=== PATIENT | female | born 2000 | race Two or more races ===

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

== ENCOUNTER 2019-06-02 20:14 | Emergency (ER) | payer OTHER ==
[~2019-06-02] VITALS: Ht 167.6 cm; Wt 71.3 kg
[2019-06-02 20:15] VITALS: BP 131/76
[2019-06-02] MEDS ORDERED: [UNRECOGNIZED DRUG - OTHER] (20:23)
[2019-06-02] MEDS ORDERED: ADDE30CA3 PO (20:23)
[2019-06-02] MEDS ORDERED: FLON1SPR NARES (21:15)
== END 2019-06-02 21:33 | disposition home or self-care (01) ==
LOC: M ED 20:14
DX: H65.01 Acute serous otitis media, right ear (principal); R09.82 Postnasal drip; Z20.89 Contact with and (suspected) exposure to other communicable diseases; G43.909 Migraine, unspecified, not intractable, without status migrainosus

== ENCOUNTER 2019-07-30 13:50 | Emergency (ER) | payer OTHER ==
[~2019-07-30] VITALS: Ht 170.2 cm; Wt 76.6 kg
[~2019-07-30 13:50] MED LIST: ADDE30CA3 PO; FLON1SPR NARES; [UNRECOGNIZED DRUG - OTHER]
[2019-07-30] MEDS ORDERED: ZOMI2.5T4 PO (13:57)
[2019-07-30] MEDS ORDERED: diphenhydrAMINE 50MG/ML VIAL (J1200) IV ONE (15:30)
[2019-07-30] MEDS ORDERED: METOCLOPRAMIDE INJ 10MG/2ML VIAL (J2765 PER 1) IV ONE (15:30)
[2019-07-30] MEDS ORDERED: NS 1,000 ML IV ONE (15:30)
[2019-07-30] MEDS ORDERED: ACETAMINOPHEN 500 MG TAB PO ONE (15:30)
[2019-07-30 15:42] LABS: APPEARANCE, URINE CLEAR (CLEAR); BACTERIA, URINE AUTO NEGATIVE (NEGATIVE); BASO # 0.1 10^3/uL (0.0-0.2); BASO % 0.7 % (0.0-1.0); BILIRUBIN, URINE AUTO NEGATIVE (NEGATIVE); BLOOD, URINE BLOOD 1+ (NEGATIVE); COLOR, URINE YELLOW (YELLOW); EOS # 0.3 10^3/uL (0.0-0.5); EOS % 4.1 % (0.0-3.0); GLUCOSE, URINE (UA) AUTO NEGATIVE (NEGATIVE); HEMATOCRIT 38.1 % (36.0-47.0); HEMOGLOBIN 13.1 g/dl (12.0-15.5); KETONE, URINE AUTO NEGATIVE (NEGATIVE); LEUKOCYTE ESTERASE, URINE AUTO NEGATIVE (NEGATIVE); LYMPH # 2.5 10^3/uL (1.5-5.0); MEAN CORPUSCULAR HEMOGLOBIN 29.1 pg (27.0-33.0); MEAN CORPUSCULAR HGB CONC 34.4 g/dl (32.0-36.5); MEAN CORPUSCULAR VOLUME 84.7 fl (80.0-96.0); MONO # 0.6 10^3/uL (0.0-0.8); MONO % 8.7 % (0.0-5.0); NEUTROPHILS # 3.5 10^3/uL (1.5-8.5); NEUTROPHILS % 50.2 % (36.0-66.0); NITRITE, URINE AUTO NEGATIVE (NEGATIVE); PLATELET COUNT, AUTOMATED 227 10^3/uL (150-450); PROTEIN, URINE AUTO NEGATIVE (NEGATIVE); RBC, URINE AUTO 0 /HPF (0-3); SPECIFIC GRAVITY URINE AUTO 1.016 (1.002-1.035); SQUAMOUS EPITHELIAL CELL UR AU 1 /HPF (0-6); WBC, URINE AUTO 1 /HPF (0-3); WHITE BLOOD COUNT 6.9 10^3/uL (4.0-10.0)
[2019-07-30 16:14] LABS: HCG, SERUM QUALITATIVE NEGATIVE (NEGATIVE)
[2019-07-30 16:16] LABS: BLOOD UREA NITROGEN 16 MG/DL (7-18); CALCIUM LEVEL 8.3 MG/DL (8.5-10.1); CARBON DIOXIDE LEVEL 29 MEQ/L (21-32); CHLORIDE LEVEL 105 MEQ/L (98-107); CK-MB VALUE MASS < 1.0 NG/ML (<3.6); CPK CREATINE PHOSPHOKINASE 82 U/L (26-192); CREATININE FOR GFR 1.01 MG/DL (0.55-1.30); FREE T4 1.26 NG/DL (0.78-1.33); GLUCOSE, FASTING 57 MG/DL (70-100); MB/CK RELATIVE INDEX 1.22 (< OR =4); SODIUM LEVEL 139 MEQ/L (136-145); TROPONIN I < 0.02 NG/ML (< 0.10)
[2019-07-30 17:27] VITALS: BP 124/77
--- NOTE | 2019-07-30 22:21 | ECGEPIP ---
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
== END 2019-07-30 17:40 | disposition home or self-care (01) ==
LOC: M ED 13:50
DX: R51 Headache (principal); I49.9 Cardiac arrhythmia, unspecified; I45.10 Unspecified right bundle-branch block; J34.89 Other specified disorders of nose and nasal sinuses; F90.9 Attention-deficit hyperactivity disorder, unspecified type; G43.909 Migraine, unspecified, not intractable, without status migrainosus; Z79.899 Other long term (current) drug therapy
CPT/HCPCS: 80048; 81001; 82550; 82553; 84439; 84443; 84484; 84703; 85025; 93005; 96361; 96374; 96375; 99284; J1200; J2765

== ENCOUNTER 2019-08-16 19:53 | Emergency (ER) | payer OTHER ==
[~2019-08-16 19:53] MED LIST changes: +ZOMI2.5T4 PO
[2019-08-16] MEDS ORDERED: GI COCKTAIL 50ML BTL(HYOSCYAMINE/MAALOX/LIDOCAINE VISCOUS)(1:3:1) PO ONE (21:00)
[2019-08-16] MEDS ORDERED: ONDANSETRON 4 MG ORAL DISINTEGRATING TAB PO ONE (21:00)
[2019-08-16] MEDS ORDERED: DICYCLOMINE 10 MG CAP PO ONE (21:00)
[2019-08-16 21:04] LABS: BASO % 0.5 % (0.0-1.0); EOS # 0.2 10^3/uL (0.0-0.5); EOS % 2.6 % (0.0-3.0); HEMATOCRIT 38.8 % (36.0-47.0); HEMOGLOBIN 13.4 g/dl (12.0-15.5); LYMPH # 3.3 10^3/uL (1.5-5.0); LYMPH % 39.3 % (24.0-44.0); MEAN CORPUSCULAR HEMOGLOBIN 28.8 pg (27.0-33.0); MEAN CORPUSCULAR HGB CONC 34.5 g/dl (32.0-36.5); MEAN CORPUSCULAR VOLUME 83.3 fl (80.0-96.0); MONO # 0.7 10^3/uL (0.0-0.8); MONO % 8.6 % (0.0-5.0); NEUTROPHILS # 4.1 10^3/uL (1.5-8.5); NEUTROPHILS % 48.8 % (36.0-66.0); PLATELET COUNT, AUTOMATED 198 10^3/uL (150-450); RED BLOOD COUNT 4.66 10^6/uL (4.00-5.40); WHITE BLOOD COUNT 8.4 10^3/uL (4.0-10.0)
[2019-08-16 22:05] LABS: ALBUMIN 3.9 GM/DL (3.2-5.2); BILIRUBIN,DIRECT 0.1 MG/DL (0.0-0.2); BILIRUBIN,TOTAL 0.3 MG/DL (0.2-1.0); TOTAL PROTEIN 7.2 GM/DL (6.4-8.2)
[2019-08-16] MEDS ORDERED: CARA1TAB6 PO (22:15)
[2019-08-16] MEDS ORDERED: OMEP-218 PO (22:15)
[2019-08-16 22:25] VITALS: BP 131/69
== END 2019-08-16 22:26 | disposition home or self-care (01) ==
LOC: M ED 19:53
DX: K29.70 Gastritis, unspecified, without bleeding (principal); K21.9 Gastro-esophageal reflux disease without esophagitis; Z79.899 Other long term (current) drug therapy
CPT/HCPCS: 80047; 80076; 81001; 83690; 85025; 99283; Q0162

== ENCOUNTER 2019-08-27 19:55 | Emergency (ER) | payer OTHER ==
[~2019-08-27] VITALS: Ht 167.6 cm; Wt 76.6 kg
[~2019-08-27 19:55] MED LIST changes: +CARA1TAB6 PO; +OMEP-218 PO
[2019-08-27 20:43] LABS: BASO % 0.4 % (0.0-1.0); EOS # 0.2 10^3/uL (0.0-0.5); EOS % 1.5 % (0.0-3.0); HEMATOCRIT 38.4 % (36.0-47.0); HEMOGLOBIN 13.2 g/dl (12.0-15.5); LYMPH % 29.2 % (24.0-44.0); MEAN CORPUSCULAR HEMOGLOBIN 28.6 pg (27.0-33.0); MEAN CORPUSCULAR HGB CONC 34.4 g/dl (32.0-36.5); MEAN CORPUSCULAR VOLUME 83.3 fl (80.0-96.0); MONO # 0.7 10^3/uL (0.0-0.8); MONO % 6.9 % (0.0-5.0); NEUTROPHILS # 6.3 10^3/uL (1.5-8.5); NEUTROPHILS % 61.7 % (36.0-66.0); PLATELET COUNT, AUTOMATED 221 10^3/uL (150-450); RED BLOOD COUNT 4.61 10^6/uL (4.00-5.40); WHITE BLOOD COUNT 10.2 10^3/uL (4.0-10.0)
[2019-08-27] MEDS ORDERED: ACETAMINOPHEN 325 MG TAB PO ONE (20:45)
[2019-08-27 21:27] VITALS: BP 118/74
== END 2019-08-27 21:28 | disposition home or self-care (01) ==
LOC: M ED 19:55
DX: O20.8 Other hemorrhage in early pregnancy (principal); Z32.01 Encounter for pregnancy test, result positive; Z87.59 Personal history of other complications of pregnancy, childbirth and the puerperium; Z91.018 Allergy to other foods

== ENCOUNTER 2020-06-26 13:26 | Emergency (ER) | payer OTHER ==
[~2020-06-26] VITALS: Ht 167.6 cm; Wt 83.5 kg
[~2020-06-26 13:26] MED LIST changes: +ACET-910 PO; +ADDE1TAB14 PO; +CYCL-707 PO; +EPIP0.3I2 IM; +GOOD200C PO; +IBUP-1022 PO; +IMIT4KIT SC; +ONDA4TAB6 PO; +TRAZ-252 PO; +ZONI100C17 PO; +adderal; +imitrex; +trazodone
[2020-06-26] MEDS ORDERED: PRE NATAL (14:28)
[2020-06-26 14:35] VITALS: BP 124/70
--- NOTE | 2020-06-26 15:08 | REP ---
INDICATION: > 20 wk abd pain eval cervical length and amniotic fluid. COMPARISON: None. TECHNIQUE: Real-time sonographic evaluation of gravid uterus performed. FINDINGS: There is a single living intrauterine gestation. measurements were not obtained. position is cephalic. Placenta is anterior and grade 0 with no previa or abruption. Cervix is closed and measures 3.8 cm in length. heart rate is 170 beats per minute. Amniotic fluid appears within normal limits. SIMONE 13.6 within normal limits. IMPRESSION: Living intrauterine gestation, cervix is closed 3.8 cm in length, heart rate 170 beats per minute. Amniotic fluid within normal limits. <Electronically signed by Du Phan > 06/26/20 [id number]
--- NOTE | 2020-06-26 15:44 | IPNPDOC ---
Text Note Date of Service The patient was seen on 06/26/20. NOTE 20 yo at 20+3 weeks gestation presented to the ER with complaint of intermittent vaginal pain, burning, and pressure with urination over the last 24-48 hours. She denies any vaginal bleeding or leakage of fluid or vaginal discharge. She denies any other symptoms. Denies recent intercourse. Chaperoned by RN Vitals - VSS, afebrile, normotensive, non tachycardic General - AAOX3, sitting up in bed, pleasant and conversant, NAD Abdomen - Gravid uterus, no fundal tenderness Pelvic - External genitalia with notable white, clumpy discharge on external labia. Swab obtained. No trauma or lesions on external genitalia. Extremities - No edema Microscopy - Yeast present UA - 2+ bacteria, too numerous to count WBCs, clean catch Suspect UTI along with yeast infection as cause of symptoms. Recommended aggressive hydration over the next few days. Will treat yeast with clotrimazole (called into [facility]) and urinary symptoms with pyridium as we await urine culture results. Will contact patient when results return. All patient questions answered. 30 minutes of patient care Morgan Damon, I+O Morgan BLACKMON, I+O Vital Signs Date Time Temp Pulse Resp B/P (MAP) Pulse Ox O2 Delivery O2 Flow Rate FiO2 06/26/20 14:35 99.0 124/70 (88) 97 Room Air 06/26/20 13:27 101 18 VICENTE MCKEON DO Jun 26, 2020 15:44
[2020-06-26 15:55] LABS: CHLAMYDIA DNA AMPLIFICATION NEGATIVE (NEGATIVE); GC DNA AMPLIFICATION NEGATIVE (NEGATIVE)
[2020-06-27] MEDS ORDERED: TERC0.4C2 (18:01)
[2020-06-27] MEDS ORDERED: PHEN-501 (18:01)
== END 2020-06-26 14:45 | disposition admitted as inpatient to this hospital (09) ==
LOC: M ED 13:26
DX: O99.891 Other specified diseases and conditions complicating pregnancy (principal); R10.9 Unspecified abdominal pain; R30.9 Painful micturition, unspecified; Z3A.20 20 weeks gestation of pregnancy; Z91.018 Allergy to other foods

== ENCOUNTER 2020-06-26 14:44 | Outpatient (CLI) | payer OTHER ==
[~2020-06-26] VITALS: Ht 167.6 cm; Wt 82.5 kg
[~2020-06-26 14:44] MED LIST changes: +PRE NATAL
[2020-06-26 14:52] VITALS: BP 132/85
[2020-06-26 15:38] VITALS: BP 117/62
[2020-06-27] MEDS ORDERED: PHEN-501 (18:01)
[2020-06-27] MEDS ORDERED: TERC0.4C2 (18:01)
== END 2020-06-26 15:54 | disposition home or self-care (01) ==
LOC: M LDO 14:44
PROVIDERS: ATTEND Obstetrics & Gynecology
DX: O99.891 Other specified diseases and conditions complicating pregnancy (principal); R30.9 Painful micturition, unspecified; Z3A.20 20 weeks gestation of pregnancy

== ENCOUNTER 2020-06-27 17:54 | Inpatient (IN) | payer OTHER ==
[~2020-06-27] VITALS: Ht 167.6 cm; Wt 83.5 kg
[2020-06-27] MEDS ORDERED: TERC0.4C2 (18:01)
[2020-06-27] MEDS ORDERED: PHEN-501 (18:01)
[2020-06-27 18:12] VITALS: BP 128/71
--- NOTE | 2020-06-27 19:17 | HPEPDOC ---
Obstetrical History & Physical General Date of Admission History of Present Illness Ms. Thompson is a 20yo at 20+4 presenting for generally feeling unwell, chills, hot flashes, reported fever at home of 100.5F, and persistent UTI symptoms. She was seen yesterday and had a UA suggestive of UTI but was awaiting culture. She was also given topical treatment for vaginal candidiasis. She otherwise denied n/v/d, cp, sob, juares, visual changes, f/c, vaginal bleeding, LOF, decreased FM, contractions. 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 Past Medical History Medical History migraines, ADHD Surgical History: Denies/None Family History Significant Family History: No pertinent family hx Social History Marital Status: Family situation: Spouse/partner home Psychosocial History: No pertinent psych hx * Smoker: non-smoker Alcohol: Denies Drugs: denies Imunizations Tdap status: needs Influenza Status: current Allergies Coded Allergies: Mushroom (Verified Allergy, Severe, HIVES; THROAT SWELLING, 06/26/20) Medications Miscellaneous Medications Phenazopyridine HCl (Phenazopyridine HCl) 200 Mg Tablet Terconazole (Terconazole) 45 Gm Cream.appl [pre juarez] Physical Examination Physical Examination GENERAL: Alert and oriented times three. BREAST: . ABDOMEN: Gravid and non-tender to touch. Right sided flank pain present. HEART RATE: Regular rate and rhythm. LUNGS: Clear to auscultation (CTA). EXTREMITIES: No edema. No clonus. Vital Signs/I&O Vital Signs Date Time Temp Pulse Resp B/P (MAP) Pulse Ox O2 Delivery O2 Flow Rate FiO2 06/27/20 18:12 98.6 107 18 128/71 (90) Laboratory Data Urine Culture: Other (GBS) Pertinent Laboratoy Data Blood Type: B+ RBC Antibody Screen: Negative HIV: Negative Hepatitis B: Negative Rapid Plasma Reagin: Nonreactive Rubella: Immune Varicella: Immune Chlamydia/Gonorrhea: Negative Group B Streptococcus: Positive Cystic Fibrosis: Negative Tocometer Multi-drug resistant Organism: No history of MDRO Assessment/Plan Assessment Ms. Thompson is a 20yo at 20+4 presenting for generally feeling unwell, chills, hot flashes, reported fever at home of 100.5F, and persistent UTI symptoms. She was seen yesterday and had a UA suggestive of UTI but was awaiting culture. She was also given topical treatment for vaginal candidiasis. She has been afebrile here and doptone were AGA. On exam she has right sided flank pain. Plan - admit for 24h rocephin for pyelonephritis (fever, systemic symptoms, flank pain, suggestive UA) - will discharge if no fever in 24h and will do 10d keflex followed by keflex prophylaxis - will alter if UCx sensitivities do not agree - ordering tylenol for discomfort and potentially for fever - giving fluconazole x1 for vaginitis as she does not have her topical treatment - will do doptones daily and VS per protocol - regular diet, activity as tolerated - SCDs when not ambulating - patient reports she had anatomy scan a few days ago, it is not in her chart will review in MILO Belcher DO Jun 27, 2020 19:17
[2020-06-27 19:23] VITALS: BP 116/68
[2020-06-27] MEDS: NS 1,000 ML IV SCH (20:11)
[2020-06-27] MEDS: cefTRIAXone SOD 1 GM in D5W MINI-BAG PLUS 50 ML IV SCH (20:12)
[2020-06-27 20:23] LABS: HEMATOCRIT 34.1 % (36.0-47.0); HEMOGLOBIN 11.8 g/dl (12.0-15.5); MEAN CORPUSCULAR HEMOGLOBIN 28.8 pg (27.0-33.0); MEAN CORPUSCULAR HGB CONC 34.6 g/dl (32.0-36.5); MEAN CORPUSCULAR VOLUME 83.2 fl (80.0-96.0); PLATELET COUNT, AUTOMATED 172 10^3/uL (150-450); WHITE BLOOD COUNT 12.6 10^3/uL (4.0-10.0)
[2020-06-27] MEDS: ACETAMINOPHEN 325 MG TAB PO PRN (20:25)
[2020-06-28] MEDS: cefTRIAXone SOD 1 GM in D5W MINI-BAG PLUS 50 ML IV SCH (02:59)
[2020-06-28] MEDS: ACETAMINOPHEN 325 MG TAB PO PRN ×2 (04:57→16:12)
[2020-06-28 06:00] VITALS: BP 116/58
--- NOTE | 2020-06-28 06:55 | IPNPDOC ---
Text Note Date of Service The patient was seen on 06/28/20. NOTE History of Present Illness Ms. Thompson reports she feels unchanged this morning; ie feeling unwell, chills, hot flashes, and persistent UTI symptoms. She is tolerating PO. She otherwise denied n/v/d, cp, sob, juares, visual changes, f/c, vaginal bleeding, LOF, decreased FM, contractions. 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 Medical History migraines, ADHD Surgical History: Denies/None Family History Significant Family History: No pertinent family hx Social History Marital Status: Family situation: Spouse/partner home Psychosocial History: No pertinent psych hx Smoker: non-smoker Alcohol: Denies Drugs: denies Imunizations Tdap status: needs Influenza Status: current Allergies Mushroom (Verified Allergy, Severe, HIVES; THROAT SWELLING, 06/26/20) Medications Phenazopyridine HCl (Phenazopyridine HCl) 200 Mg Tablet Terconazole (Terconazole) 45 Gm Cream.appl [pre ] Physical Examination GENERAL: Alert and oriented times three. BREAST: . ABDOMEN: Gravid and non-tender to touch. Right sided flank pain present. HEART RATE: Non-tachycardic LUNGS: No increased WOB EXTREMITIES: No edema. No clonus. Pertinent Laboratoy Data Blood Type: B+ RBC Antibody Screen: Negative HIV: Negative Hepatitis B: Negative Rapid Plasma Reagin: Nonreactive Rubella: Immune Varicella: Immune Chlamydia/Gonorrhea: Negative Group B Streptococcus: Positive Cystic Fibrosis: Negative Tocometer Multi-drug resistant Organism: No history of MDRO Assessment Ms. Thompson is a 20yo at 20+4 presenting for generally feeling unwell, chills, hot flashes, and persistent UTI symptoms. She has right flank pain and reports a fever on 12APR at home. She was started on IV rocephin for presumed pyelonephritis. Urine culture has returned K. pneumo and it is sensitive to cpehalosporins. While in-patient she has been afebrile but continues to have mild tachycardia. Doptones have been documented daily and are normal. Plan - admit for minimum of 24h rocephin for pyelonephritis (fever, systemic symptoms, flank pain, suggestive UA), or 48h afebrile - will discharge with 10d keflex followed by keflex prophylaxis - ordered to [facility] - ordering tylenol for discomfort and potentially for fever - received fluconazole x1 for vaginitis as she does not have her topical treatment - will do doptones daily and VS per protocol - regular diet, activity as tolerated - SCDs when not ambulating VS,Fishbone, I+O VS, Fishbone, I+O Laboratory Tests 06/27/20 20:06 Vital Signs Date Time Temp Pulse Resp B/P (MAP) Pulse Ox O2 Delivery O2 Flow Rate FiO2 06/28/20 06:00 96.3 113 18 116/58 (77) 97 Room Air I&O- Last 24 Hours up to 6 AM 06/28/20 06:00 Intake Total 1020 ml Output Total 875 ml Balance 145 ml MILO BUCKLEY DO Jun 28, 2020 06:55
[2020-06-28] MEDS: NS 1,000 ML IV SCH (07:12)
[2020-06-28] MEDS ORDERED: FLUCONAZOLE 50MG TABLET PO SCH (09:00)
[2020-06-28 13:10] VITALS: BP 129/86
[2020-06-28 18:00] VITALS: BP 108/55
[2020-06-29] MEDS: ACETAMINOPHEN 325 MG TAB PO PRN ×2 (01:39→14:14)
[2020-06-29] MEDS: cefTRIAXone SOD 1 GM in D5W MINI-BAG PLUS 50 ML IV SCH (02:51)
[2020-06-29 06:00] VITALS: BP 99/61
--- NOTE | 2020-06-29 07:04 | IPNPDOC ---
Text Note Date of Service The patient was seen on 06/29/20. NOTE 20 yo at 20+6 weeks gestation currently on HD#3 with suspicion for pyelonephritis. Flor has been receiving 1gm Q24h of rocephin with confirmed culture sensitivities. Flor reports still feeling unwell this AM. She reports subjective fevers and chills. She also endorses some nausea and back pain on the right side. She denies any vaginal bleeding or discharge. She is tolerating a regular diet, ambulating, and voiding without difficulty. Vitals - VSS, afebrile, normotensive, non tachycardic General - AAOX3, laying in bed Abdomen - Gravid uterus, no fundal tenderness Extremities - No edema No new labs Flor reports minimal to improvement in her symptoms. Will obtain renal US today. WIll also check CBC and CMP. Maintenance fluids restarted. Flexeril for back pain. Continue rocephin at this time until clinical improvement. All questions answered. Etienne VS,Morgan, I+O VS, Morgan, I+O Vital Signs Date Time Temp Pulse Resp B/P (MAP) Pulse Ox O2 Delivery O2 Flow Rate FiO2 06/29/20 06:00 96.3 100 17 99/61 (74) 100 Room Air I&O- Last 24 Hours up to 6 AM 06/29/20 05:59 Intake Total 1920 ml Output Total 625 ml Balance 1295 ml VICENTE MCKEON DO Jun 29, 2020 07:04
[2020-06-29] MEDS: NS 1,000 ML IV SCH ×2 (07:27→19:51)
[2020-06-29 07:43] LABS: HEMATOCRIT 27.4 % (36.0-47.0); MEAN CORPUSCULAR HEMOGLOBIN 28.7 pg (27.0-33.0); MEAN CORPUSCULAR HGB CONC 34.7 g/dl (32.0-36.5); MEAN CORPUSCULAR VOLUME 82.8 fl (80.0-96.0); PLATELET COUNT, AUTOMATED 144 10^3/uL (150-450); RED BLOOD COUNT 3.31 10^6/uL (4.00-5.40); WHITE BLOOD COUNT 7.7 10^3/uL (4.0-10.0)
[2020-06-29 07:53] LABS: HEMOGLOBIN 9.5 g/dl (12.0-15.5)
[2020-06-29 08:14] LABS: ALBUMIN 2.6 GM/DL (3.2-5.2); ALT/SGPT 12 U/L (12-78); BILIRUBIN,TOTAL 0.4 MG/DL (0.2-1.0); BLOOD UREA NITROGEN 6 MG/DL (7-18); CALCIUM LEVEL 8.5 MG/DL (8.5-10.1); CARBON DIOXIDE LEVEL 23 MEQ/L (21-32); CHLORIDE LEVEL 108 MEQ/L (98-107); CREATININE FOR GFR 0.64 MG/DL (0.55-1.30); GLOMERULAR FILTRATION RATE > 60.0 (>60); GLUCOSE, FASTING 90 MG/DL (70-100); POTASSIUM SERUM 3.7 MEQ/L (3.5-5.1); SODIUM LEVEL 139 MEQ/L (136-145); TOTAL PROTEIN 5.8 GM/DL (6.4-8.2)
--- NOTE | 2020-06-29 09:22 | REP ---
INDICATION: suspicion pyelnephritis with worsening symptoms on right COMPARISON: None TECHNIQUE: Real time kauffman scale ultrasound examination using curved array transducer. FINDINGS: Bilateral kidneys are normal in contour, size, echogenicity, reniform shape and generalized intrarenal vascularity. No perinephric fluid collection identified. Right kidney measures 12.0 x 7.1 x 4.8 cm and demonstrates mild hydronephrosis possibly related although a 5 x 7 mm nonobstructing intrarenal calculus is suggested. No right renal cyst or mass. RI equals 0.58 Left kidney measures 11.6 x 6.0 x 4.9 cm without hydronephrosis, nephrolithiasis, cystic or mass lesion. RI equals 0.58. IMPRESSION: 1. Right kidney demonstrates mild hydronephrosis as well as 7 mm nonobstructing calculus. Hydronephrosis may be secondary to . Correlation is required. <Electronically signed by Lincoln Porter > 06/29/20 [id number]
[2020-06-29] MEDS: CYCLOBENZAPRINE 10MG TABLET PO SCH ×3 (09:43→22:07)
[2020-06-29 13:10] LABS: RSV AMPLIFICATION NEGATIVE (NEGATIVE)
[2020-06-29 14:00] VITALS: BP 115/58
[2020-06-29] MEDS ORDERED: ONDANSETRON 4MG/2ML VIAL IV ONE (14:20)
--- NOTE | 2020-06-29 14:28 | IPNPDOC ---
Obstetrical Progress Note Date of Service Jun 29, 2020 Subjective 20 yo at 20w6d on HD3 for suspected pyelonephritis. Discussed recent US and lab results with patient. She reports that she still is not feeling well and that she has been having fever, chills, hot flashes, night sweats, and RUQ pain. She reports that she has been nauseous and that it is difficult to keep food or fluids down without her stomach "turning." Objective Vital Signs Date Time Temp Pulse Resp B/P (MAP) Pulse Ox O2 Delivery O2 Flow Rate FiO2 06/29/20 06:00 96.3 100 17 99/61 (74) 100 Room Air Patient feels warm and clammy to touch Positive Deluca sign with palpation Denies tenderness in left upper quadrant to palpation Assessment and Plan Age: 20 : 3 Term: 0 Pre-term: 0 Abortions: 2 Livin Weeks & Days 20w6d Additional Comments Recommended for IV pepcid and zofran at this time Recommended for her increase PO hydration Strict I&O Gallbladder US ELLE RIOS CNM Jun 29, 2020 14:27
[2020-06-29] MEDS ORDERED: FAMOTIDINE INJ 20MG/2ML VIAL (S0028 PER 1) IVP ONE (15:00)
--- NOTE | 2020-06-29 15:37 | REP ---
INDICATION: RUQ PAIN. Twenty-one weeks gestation. COMPARISON: Comparison is made with renal sonographic findings from this date. Comparison right upper quadrant sonography August 20, 2018. Comparison CT study December 09, 2018.. TECHNIQUE: Right upper quadrant sonography. FINDINGS: Scanning through the right upper quadrant of the abdomen demonstrates a normal sized, thin-walled gallbladder without evidence of stone or polyp. Common bile duct is normal measuring 0.3 cm in greatest diameter. No focal liver lesion is seen. Liver size is normal. No pancreatic abnormality is observed. There is a moderate degree of right-sided hydronephrosis. The uretero- pelvic junction measures 1.0 cm in diameter, earlier measurements 0.9 cm.. A 7 mm echogenic focus is again noted at mid kidney level without acoustic shadowing. This could be a calculus. These findings are unchanged from the renal sonography done earlier today. No other right renal abnormality is seen. There is no evidence of ascites. The right kidney measures 12.1 x 6.1 x 4.9 cm. heart rate is recorded during the exam at 147 beats per minute. IMPRESSION: Moderate right-sided hydronephrosis again seen similar to the study done of the kidneys are L today. Question intrarenal calculus. Otherwise negative right upper quadrant sonography. <Electronically signed by Jose Bolaños > 06/29/20 [id number]
--- NOTE | 2020-06-29 17:54 | REP ---
INDICATION: please evaluate for appendicitis. COMPARISON: None. TECHNIQUE: Transabdominal right lower quadrant scanning with compression. FINDINGS: Scanning in the right lower quadrant shows no evidence of cyst, mass, or adenopathy. No abnormal acoustic shadowing is seen. Some normally peristalsing small bowel loops are observed. The appendix is not directly visualized. There was no evidence of focal pain or rebound with transducer pressure. IMPRESSION: Appendix not directly visualized. Otherwise negative, no indirect evidence seen to suggest appendicitis <Electronically signed by Jose Bolaños > 06/29/20 [id number]
[2020-06-29 18:09] VITALS: BP 109/55
--- NOTE | 2020-06-29 20:06 | REPVR ---
PROCEDURE INFORMATION: Exam: CT Abdomen And Pelvis Without Contrast Exam date and time: 06/29/2020 7:31 PM Age: 20 years old Clinical indication: Abdominal pain; Localized; Right; Additional info: Right sided pain in please eval ruq/rlq +abd pelvi TECHNIQUE: Imaging protocol: Computed tomography of the abdomen and pelvis without contrast. Axial, coronal and sagittal reformatted images were created and reviewed. Radiation optimization: All CT scans at this facility use at least one of these dose optimization techniques: automated exposure control; mA and/or kV adjustment per patient size (includes targeted exams where dose is matched to clinical indication); or iterative reconstruction. COMPARISON: CT ABD/PEL W/IV CONTRAST ONLY 12/09/2018 10:20 PM FINDINGS: Lungs: Mild dependent atelectatic change at the lung bases. Pleural spaces: Small pleural effusions. Liver: Unremarkable. Gallbladder and bile ducts: No radiodense gallstones. No biliary ductal dilatation. Pancreas: Unremarkable. Spleen: Unremarkable. Adrenal glands: Normal. No mass. Kidneys and ureters: Moderate right-sided hydroureteronephrosis and perinephric/periureteral edema. No radiodense calculi. Stomach and bowel: No bowel wall thickening. No obstruction. No pneumatosis. Appendix: Normal. Intraperitoneal space: No free fluid. No organized fluid collection. No free air. Vasculature: Unremarkable. No aneurysm. Lymph nodes: No pathologically enlarged lymph nodes. Urinary bladder: Mild circumferential urinary bladder wall thickening, likely secondary to underdistention. Reproductive: Gravid uterus. Bones/joints: No acute osseous abnormality. Soft tissues: Unremarkable. IMPRESSION: 1. Moderate right-sided hydroureteronephrosis and perinephric/periureteral edema, likely secondary to compression of the distal ureter by the gravid uterus. No radiodense calculi. Infection cannot be excluded without intravenous contrast. 2. Small pleural effusions. 3. Additional findings, as above. Electronically signed by: Jose Cruz On 06/29/2020 20:07:15 PM
[2020-06-29 22:00] VITALS: BP 112/59
--- NOTE | 2020-06-29 22:26 | IPNPDOC ---
Text Note Date of Service The patient was seen on 06/29/20. NOTE Visited patient she reports she is unchanged from this morning. she still has chills and sweats, RUQ pain, R CVA tenderness, UTI sx, loss of appetite, and nausea. She has remained afebrile and with normal VS since admission. Her PE is unchanged from this morning. Her WBC has decreased from 12 to 7 (but her Hbg and PLT also decreased slightly this may be dilution). Her LFTs and renal function are normal. Her COVID/flu/RSV testing are normal. US was obtained of the gallbladder, kidney, and appendix (appendix was not visualized) and they revealed a 7mm non obstructing renal stone on the right side and mild right hydronephrosis. They were otherwise normal. I discussed with the patient the lack of objective findings to explain her symptoms. We discussed more definitive imaging, CT scan, and the risks of this in . She decided to proceed. CT scan revealed small pleural effusions and atelectsis. A respiratory panel was ordered and antibiotic coverage was extended (per guidance of pharmacist) with azithromycin PO to cover possible community acquired pneumonia. I also spoke with the coroner/medical examiner urologist who stated that in some cases patient's can take over 24h to feel clinically better after initiating treatment for pyelonephritis. He did not recommend extending antibiotic coverage or changing the plan given the renal stone as there is no obstruction, he stated the stone would not explain her discomfort. Plan to follow up on respiratory panel and assess patient progress after broadening antibiotics to cover possible CA pneumonia. VS,Fishbone, I+O VS, Fishbone, I+O Laboratory Tests 06/29/20 07:12 Vital Signs Date Time Temp Pulse Resp B/P (MAP) Pulse Ox O2 Delivery O2 Flow Rate FiO2 06/29/20 18:09 97.5 79 16 109/55 (73) 06/29/20 14:00 100 Room Air I&O- Last 24 Hours up to 6 AM 06/29/20 06:00 Intake Total 1920 ml Output Total 625 ml Balance 1295 ml MILO BUCKLEY DO Jun 29, 2020 22:26
[2020-06-29] MEDS ORDERED: AZITHROMYCIN 250MG TABLET PO ONE (22:30)
[2020-06-30 02:00] VITALS: BP 108/57
[2020-06-30] MEDS: cefTRIAXone SOD 1 GM in D5W MINI-BAG PLUS 50 ML IV SCH (02:44)
[2020-06-30] MEDS: ACETAMINOPHEN 325 MG TAB PO PRN (02:44)
[2020-06-30 06:00] VITALS: BP 105/60
--- NOTE | 2020-06-30 06:50 | IPNPDOC ---
Text Note Date of Service The patient was seen on 06/30/20. NOTE History of Present Illness Ms. Thompson reports she feels improved this morning. She no longer "feels unwell," has chills, or UTI symptoms. She is unsure if she still has nausea because she has not eaten. She did endorse hot flashes over night. She is tolerating clears. She otherwise denied v/d, cp, sob, juares, visual changes, f/c, vaginal bleeding, LOF, decreased FM, contractions. Antepartum Course Pre- weight (lbs.): 173 Admission Weight (lbs.): 178 Past Medical History Past Obstetrical History: Multigravida (SAB x2 uncomplicated) [employer] History: Spontaneous Medical History migraines, ADHD Surgical History: Denies/None Family History Significant Family History: No pertinent family hx Social History Marital Status: Family situation: Spouse/partner home Psychosocial History: No pertinent psych hx Smoker: non-smoker Alcohol: Denies Drugs: denies Imunizations Tdap status: needs Influenza Status: current Allergies Mushroom (Verified Allergy, Severe, HIVES; THROAT SWELLING, 06/26/20) Medications Phenazopyridine HCl (Phenazopyridine HCl) 200 Mg Tablet Terconazole (Terconazole) 45 Gm Cream.appl [pre ] Physical Examination GENERAL: Alert and oriented times three. BREAST: . ABDOMEN: Gravid and non-tender to touch. Right sided flank pain present. Mild right abdominal tenderness. HEART RATE: Non-tachycardic LUNGS: No increased WOB EXTREMITIES: No edema. No clonus. Pertinent Laboratoy Data Blood Type: B+ RBC Antibody Screen: Negative HIV: Negative Hepatitis B: Negative Rapid Plasma Reagin: Nonreactive Rubella: Immune Varicella: Immune Chlamydia/Gonorrhea: Negative Group B Streptococcus: Positive Cystic Fibrosis: Negative Tocometer Multi-drug resistant Organism: No history of MDRO Assessment Ms. Thopmson is a 20yo at 21+0 presenting for generally feeling unwell, chills, hot flashes, and persistent UTI symptoms. Now with all symptoms resolved except for night sweats. She has right flank pain and reports a fever on 12APR at home. She was started on IV rocephin for presumed pyelonephritis. Urine culture has returned K. pneumo and it is sensitive to cpehalosporins. She has remained afebrile and with normal VS. Doptones have been documented daily and are normal. During her stay she remained feeling unwell and having chills/sweats. Repeat CBC showed decreased WBC. CMP showed normal LFTs and renal function. Respiratory pannel to include RSV/Flu/COVID was negative. She had U/S of the liver, gallbladder, appendix, and kidney revealed only a 7mm non- obstructing stone that per urology would not contribute to her symptomology. Given the lack of findings to support her continued illness CT was discussed to assess appendix and patient agreed. The appendix was normal but bilateral small pleural effusions and atelectsis were noted. Overnight she had azithromycin added to her antibiotics to cover for possible pulmonary etiology (per pharmacist guidance). Plan - will discontinue IV rocephin this morning and transfer to PO antibotics - will transition from 500 to 250mg azithro x4 more days - will discharge with 10d keflex followed by keflex prophylaxis and 4d of azithro - ordered to denia - tylenol for discomfort and potentially for fever - received fluconazole x1 for vaginitis whine in patient - doptones daily and VS per protocol - regular diet, activity as tolerated - SCDs when not ambulating - plan for discharge this afternoon if still improving VS,Fishbone, I+O VS, Fishbone, I+O Laboratory Tests 06/29/20 07:12 Vital Signs Date Time Temp Pulse Resp B/P (MAP) Pulse Ox O2 Delivery O2 Flow Rate FiO2 06/30/20 02:00 98.2 89 18 108/57 (74) Room Air 06/29/20 22:00 98 I&O- Last 24 Hours up to 6 AM 06/30/20 06:00 Intake Total 1930 ml Output Total 1150 ml Balance 780 ml MILO BUCKLEY DO Jun 30, 2020 06:50
[2020-06-30] MEDS ORDERED: AZITHROMYCIN 250MG TABLET PO SCH (09:00)
--- NOTE | 2020-06-30 09:18 | OBDS ---
[facility] Obstetrical Discharge Sum. Obstetrical Discharge Summary Date: Jun 30, 2020 Time: 09:14 : 3 Term: 0 Pre-term: 0 Abortions: 2 Livin A/P, Post Course List any complications Admission diagnosis: Suspected pyelonephritis Discharge diagnosis: Suspected pyelonephritis, URI Condition at Discharge: Stable Discharge Instructions: Home/other, Keep next appointment with Jolene Muro EARLY MORNING in 2 weeks, Discussed antibiotic for pyelonephritis and URI, clear liquids x2 days and then advance diet as appropriate Activity: Regular Diet: Clears x2 days, advance diet as appropriate Medications: Keflex, azithromycin Follow-up: Jolene Muro in 2 weeks Other: ELLE RIOS CNM Jun 30, 2020 09:18
[2020-06-30 10:00] VITALS: BP 115/59
[2020-06-30] MEDS: CYCLOBENZAPRINE 10MG TABLET PO SCH (10:09)
[2020-06-30 23:34] LABS: AMYLASE 53 U/L (25-115); LIPASE 98 U/L (73-393)
== END 2020-06-30 10:55 | disposition home or self-care (01) | DRG 832 ==
LOC: M LDO 17:54 → M OBS 17:55 → M LDO 06-28 07:00 → M OBS 06-28 07:00 → M LDO 06-28 07:01 → UNDOADMOB 06-28 07:01 → OBSVTOIN 06-29 14:16 → UNDODISOB 06-30 10:55
PROVIDERS: ADMIT Obstetrics & Gynecology; ATTEND Obstetrics & Gynecology
DX: O23.02 Infections of kidney in pregnancy, second trimester (principal); N10 Acute pyelonephritis; Z3A.20 20 weeks gestation of pregnancy; B37.3 Candidiasis of vulva and vagina; J06.9 Acute upper respiratory infection, unspecified; O99.512 Diseases of the respiratory system complicating pregnancy, second trimester

== ENCOUNTER 2020-08-19 11:12 | Outpatient (CLI) | payer OTHER ==
[~2020-08-19] VITALS: Ht 167.6 cm; Wt 87.5 kg
[~2020-08-19 11:12] MED LIST changes: +PHEN-501; +TERC0.4C2
[2020-08-19 11:25] VITALS: BP 121/62
[2020-08-19] MEDS ORDERED: STUACAP PO (11:27)
[2020-08-19] MEDS ORDERED: ACET-907 PO (11:28)
[2020-08-19 11:47] VITALS: BP 116/68
[2020-08-19 12:07] VITALS: BP 116/70
[2020-08-19 12:13] LABS: HEMATOCRIT 32.6 % (36.0-47.0); HEMOGLOBIN 11.2 g/dl (12.0-15.5); MEAN CORPUSCULAR HEMOGLOBIN 28.4 pg (27.0-33.0); MEAN CORPUSCULAR HGB CONC 34.4 g/dl (32.0-36.5); MEAN CORPUSCULAR VOLUME 82.7 fl (80.0-96.0); PLATELET COUNT, AUTOMATED 156 10^3/uL (150-450); RED BLOOD COUNT 3.94 10^6/uL (4.00-5.40)
[2020-08-19 12:27] VITALS: BP 115/72
[2020-08-19 12:41] LABS: ALT/SGPT 11 U/L (12-78); BILIRUBIN,TOTAL 0.3 MG/DL (0.2-1.0); CREATININE FOR GFR 0.67 MG/DL (0.55-1.30); GLOMERULAR FILTRATION RATE > 60.0 (>60); LDH LACTATE DEHYDROGENASE 139 U/L (84-246); URIC ACID 4.4 MG/DL (2.6-6.0)
[2020-08-19 13:04] LABS: TOTAL PROTEIN,RANDOM URINE 14.5 MG/DL (0.0-12.0)
--- NOTE | 2020-08-19 13:06 | IPNPDOC ---
Obstetrical Progress Note Date of Service Aug 19, 2020 Subjective 20 yo at 28w1d with REBECCA of 10 NOV 2020 presents to L&D with complaints of nausea and headache today that have now both been resolved since prior to arriving to L&D for triage. She denies contractions, leaking of fluid, vaginal bleeding, and reports positive movement. She denies headache, chest pain, RUQ pain, and visual changes at this time. Objective Vital Signs Date Time Temp Pulse Resp B/P (MAP) Pulse Ox O2 Delivery O2 Flow Rate FiO2 08/19/20 12:27 75 115/72 (86) 08/19/20 11:25 97.4 16 Room Air Assessment Heart Rate (FHR): 145 Variability: Moderate Accelerations: Present Decelerations: None Tocometer Contractions: No Assessment and Plan Age: 20 : 3 Term: 0 Pre-term: 0 Abortions: 2 Livin Weeks & Days 28w1d Status: Reassuring Anticipate: Other (Discharge to home, certified not in labor) Additional Comments PIH precautions discussed FKC and PTL precautions discussed Recommended to keep all appointments with [facility]ESS MANAGER Recommended to hydrate well with 3-4 liters of water per day Recommended to eat small meals every 2-3 hours with foods higher in protein Return to L&D if symptoms worsen or persist ELLE RIOS CNM Aug 19, 2020 12:39
== END 2020-08-19 13:33 | disposition home or self-care (01) ==
LOC: M LDO 11:12
PROVIDERS: ATTEND Registered Nurse Maternal Newborn
DX: O26.893 Other specified pregnancy related conditions, third trimester (principal); Z3A.28 28 weeks gestation of pregnancy; R11.0 Nausea; R51.9 Headache, unspecified
CPT/HCPCS: 36415; 82247; 82565; 82570; 83615; 84156; 84450; 84460; 84550; 85027; G0378; G0463

== ENCOUNTER 2021-02-02 12:13 | Emergency (ER) | payer OTHER ==
[~2021-02-02] VITALS: Ht 170.2 cm; Wt 80.5 kg
[2021-02-02 12:13] VITALS: BP 145/79
[~2021-02-02 12:13] MED LIST changes: +ACET-907 PO; +STUACAP PO; +TERC0.4C10; -TERC0.4C2
--- OUTSIDE RECORDS SUMMARY | 2021-02-02 12:24 | CCD ---
Author Author [facility] Organization [facility] Address Unknown Phone Unavailable Care Team Providers Care Molder Foam Rubber Name Role Phone Trickey, J Carla PA Unavailable Unavailable Trickey, J Carla PA Unavailable Unavailable Trickey, J Carla PA Unavailable Unavailable Trickey, J Carla PA Unavailable Unavailable Trickey, J Carla PA Unavailable Unavailable Trickey, J Carla PA Unavailable Unavailable Trickey, J Carla PA Unavailable Unavailable Trickey, J Carla PA Unavailable Unavailable Trickey, J Carla PA Unavailable Unavailable Trickey, J Carla PA Unavailable Unavailable Trickey, J Carla PA Unavailable Unavailable Trickey, J Carla PA Unavailable Unavailable Trickey, J Carla PA Unavailable Unavailable Trickey, J Carla PA Unavailable Unavailable Trickey, J Carla PA Unavailable Unavailable Trickey, J Carla PA Unavailable Unavailable Trickey, J Carla PA Unavailable Unavailable Trickey, J Carla PA Unavailable Unavailable Trickey, J Carla PA Unavailable Unavailable Trickey, J Carla PA Unavailable Unavailable Trickey, J Carla PA Unavailable Unavailable Trickey, J Carla PA Unavailable Unavailable Trickey, J Carla PA Unavailable Unavailable Trickey, J Carla PA Unavailable Unavailable Trickey, J Carla PA Unavailable Unavailable Trickey, J Carla PA Unavailable Unavailable Trickey, J Carla PA Unavailable Unavailable Trickey, J Carla PA Unavailable Unavailable Trickey, J Carla PA Unavailable Unavailable Trickey, J Carla PA Unavailable Unavailable Trickey, J Carla PA Unavailable Unavailable Trickey, J Carla PA Unavailable Unavailable Trickey, J Carla PA Unavailable Unavailable Trickey, J Carla PA Unavailable Unavailable Trickey, J Carla PA Unavailable Unavailable Trickey, J Carla PA Unavailable Unavailable Trickey, J Carla PA Unavailable Unavailable Trickey, J Carla PA Unavailable Unavailable Trickey, J Carla PA Unavailable Unavailable Trickey, J Carla PA Unavailable Unavailable Trickey, J Carla PA Unavailable Unavailable Trickey, J Carla PA Unavailable Unavailable Trickey, J Carla PA Unavailable Unavailable Trickey, J Carla PA Unavailable Unavailable Trickey, J Carla PA Unavailable Unavailable Trickey, J Carla PA Unavailable Unavailable Trickey, J Carla PA Unavailable Unavailable Trickey, J Carla PA Unavailable Unavailable Trickey, J Carla PA Unavailable Unavailable Re-disclosure Warning The records that you are about to access may contain information from federally-assisted alcohol or drug abuse programs. If such information is present, then the following federally mandated warning applies: This information has been disclosed to you from records protected by federal confidentiality rules (42 CFR part 2). The federal rules prohibit you from making any further disclosure of this information unless further disclosure is expressly permitted by the written consent of the person to whom it pertains or as otherwise permitted by 42 CFR part 2. A general authorization for the release of medical or other information is NOT sufficient for this purpose. The Federal rules restrict any use of the information to criminally investigate or prosecute any alcohol or drug abuse patient.The records that you are about to access may contain highly sensitive health information, the redisclosure of which is protected by Article 27-F of the [facility] Public Health law. If you continue you may have access to information: Regarding HIV / AIDS; Provided by facilities licensed or operated by the [facility] Office of Mental Health; or Provided by the [facility] Office for People With Developmental Disabilities. If such information is present, then the following [facility] mandated warning applies: This information has been disclosed to you from confidential records which are protected by state law. State law prohibits you from making any further disclosure of this information without the specific written consent of the person to whom it pertains, or as otherwise permitted by law. Any unauthorized further disclosure in violation of state law may result in a fine or group home sentence or both. A general authorization for the release of medical or other information is NOT sufficient authorization for further disc losure. Encounters Encounter Providers Location Date Indications Data Source(s ) Outpatient Attender: Carla ROSE Main office [facility] 02/22/2020 07:45:00 AM EST [facility] ([facility]) Medications Medication Brand Name Start Date Product Form Dose Route Admi nistrative Instructions Pharmacy Instructions Status Indications Reaction Description Data Source(s) 24 HR venlafaxine 75 MG Extended Release Oral Capsule Venlaf axine HCL ER 02/22/2020 12:00:00 AM EST ORAL active [facility] ([facility]) 24 HR venlafaxine 37.5 MG Extended Release Oral Capsule Venl afaxine HCL ER 10/30/2019 12:00:00 AM EDT ORAL completed [facility] ([facility]) Insurance Providers Payer name Policy type / Coverage type Policy ID Covered constitution party ID Covered constitution party's relationship to mccormick Policy Mccormick Plan Information [facility] ACTIVE DUTY [id number] SP [id number] [facility] ACTIVE [facility] [id number] SP [id number] [employer] [place] O [id number] S [id number] [place] [employer] - O/P [id number] 18 [id number] Problems, Conditions, and Diagnoses No Information Surgeries/Procedures Procedure Description Date Indications Data Source(s) Injection For Nerve Block, Greater Occipital Nerve 12/07/2019 12:00:00 AM EDT [facility] ([facility] INJECTION ANES OTHER PERIPHERAL NERVE/BRANCH 0 12:00:00 AM EDT [facility] ([facility] Results ID Date Data Source [id number] 06/29/2020 09:20:00 PM EDT [facility] Name Value Range Interpretation Code Description Data Pam rce(s) Supporting Document(s) SARS-CoV-2 (COVID 19) NEGATIVE - SARS-CoV-2 (COVID19) [facility] This lab was ordered by [facility] a nd reported by [facility]. ID Date Data Source [id number] 06/29/2020 11:59:00 AM EDT [facility] Name Value Range Interpretation Code Description Data Pam rce(s) Supporting Document(s) SARS coronavirus 2 RNA [Presence] in Res piratory specimen by LAUREN with probe detection NEGATIVE [facility] This lab was ordered by [facility] a nd reported by [facility]. ID Date Data Source [id number] 06/27/2020 09:20:00 AM EDT [facility] Name Value Range Interpretation Code Description Data Pam rce(s) Supporting Document(s) SARS coronavirus 2 RNA Not Detected [facility] This lab was ordered by [facility] and reported by [facility]. Procedure Social History No Information
[2021-02-02] MEDS ORDERED: PREN27TA3 (12:27)
[2021-02-02] MEDS ORDERED: BACTDSTA (12:27)
--- OUTSIDE RECORDS SUMMARY | 2021-02-02 22:11 | CCD ---
Author Author [facility] Organization [facility] Address Unknown Phone Unavailable Care Team Providers Care Radiology Practitioner Assistant Name Role Phone Trickey, J Carla PA [...] Unavailable Trickey, J Carla PA Unavailable Unavailable [facility] Unavailable Unavailable CHANLIECCO, C YOUSIF MD Unavailable Unavailable CHANLIECCO, C YOUSIF MD Unavailable Unavailable CHANLIECCO, C YOUSIF MD Unavailable Unavailable CHANLIECCO, C YOUSIF MD Unavailable Unavailable CHANLIECCO, C YOUSIF MD Unavailable Unavailable CHANLIECCO, C YOUSIF MD Unavailable Unavailable CHANLIECCO, C YOUSIF MD Unavailable Unavailable CHANLIECCO, C YOUSIF MD Unavailable Unavailable CHANLIECCO, C YOUSIF MD Unavailable Unavailable CHANLIECCO, C YOUSIF MD Unavailable Unavailable CHANLIECCO, C YOUSIF MD Unavailable Unavailable Re-disclosure Warning The records that [...] is protected by Article 27-F of the [facility] Public Health law. If you continue you may have access to information: Regarding HIV / AIDS; Provided by facilities licensed or operated by the [facility] Office of Mental Health; or Provided by the [facility] Office for People With Developmental Disabilities. If such information is present, then the following [facility] mandated warning applies: This information has been [...] law may result in a fine or chcf sentence or both. A general authorization for the release of medical or other information is NOT sufficient authorization for further disc losure. Encounters Encounter Providers Location Date Indications Data Source(s ) Emergency Attender: YOUSIF COREAS MDConsultant: CLIN [facility] 02/02/2021 04:05:16 PM EST - 02/02/2021 05:34:00 PM [facility] Patient discharged. Outpatient Attender: Carla ROSE Main office [facility] 02/22/2020 07:45:00 AM EST [facility] ([facility]) Medications Medication Brand Name Start Date Product Form Dose Route Admi nistrative Instructions Pharmacy Instructions Status Indications Reaction Description Data Source(s) 24 HR venlafaxine 75 MG Extended Release Oral Capsule Venlaf axine HCL ER 02/22/2020 12:00:00 AM EST ORAL active [facility] ([facility]) 24 HR venlafaxine 37.5 MG Extended Release Oral Capsule Venl afaxine HCL ER 10/30/2019 12:00:00 AM EDT ORAL completed [facility] ([facility]) Insurance Providers Payer name Policy type / Coverage type Policy ID Covered alliance party ID Covered alliance party's relationship to mccormick Policy Mccormick Plan Information [facility] ACTIVE DUTY [id number] SP [id number] [facility] [employer] [id number] SP [id number] [facility] [employer] - O/P [id number] 18 [id number] [employer] [facility] O [id number] S [id number] Problems, Conditions, and Diagnoses No Information Surgeries/Procedures Procedure Description Date Indications Data Source(s) Injection For Nerve Block, Greater Occipital Nerve 12/07/2019 12:00:00 AM EDT [facility] ([facility]) INJECTION ANES OTHER PERIPHERAL NERVE/BRANCH 0 12:00:00 AM EDT [facility] ([facility] ) Results ID Date Data Source [id number] 06/29/2020 09:20:00 PM EDT [facility] Name Value Range Interpretation Code Description Data Pam rce(s) Supporting Document(s) SARS-CoV-2 (COVID 19) NEGATIVE - SARS-CoV-2 (COVID19) [facility] This lab was ordered by [facility] a nd reported by [facility]. ID Date Data Source [id number] 06/29/2020 11:59:00 AM EDT [facility] Name Value Range Interpretation Code Description Data Pam rce(s) Supporting Document(s) SARS coronavirus 2 RNA [Presence] in Res piratory specimen by LAUREN with probe detection NEGATIVE [facility] This lab was ordered by [facility] a nd reported by [facility]. ID Date Data Source [id number] 06/27/2020 09:20:00 AM EDT [facility] Name Value Range Interpretation Code Description Data Pam rce(s) Supporting Document(s) SARS coronavirus 2 RNA Not Detected [facility] [place] This lab was ordered by [facility] and reported by [facility]. Procedure Social History No Information
== END 2021-02-02 22:18 | disposition left against medical advice (07) ==
LOC: M ED 12:13
DX: Z53.21 Procedure and treatment not carried out due to patient leaving prior to being seen by health care provider (principal)